=== PATIENT | female | born 1950 | race Caucasian/White ===

== ENCOUNTER 2018-06-09 02:39 | Emergency (ER) | payer OTHER ==
[~2018-06-09] VITALS: Ht 149.9 cm; Wt 73.0 kg
[2018-06-09 02:53] VITALS: Ht 149.9 cm; Wt 73.0 kg
[2018-06-09 03:49] LABS: BASOPHIL % 0.4 % (0-2); PLATELET COUNT 197 x10^3mcL (130-400); RED CELL DISTRIBUTION WIDTH 13.3 % (11.5-14.5)
[2018-06-09 03:57] LABS: CALCIUM 8.7 mg/dL (8.5-10.1); CARBON DIOXIDE 31.6 mmol/L (21-32); CHLORIDE SERUM 103 mmol/L (98-107); CREATININE SERUM 0.8 mg/dL (0.6-1.0); GFR1 > 60 mL/min; GLUCOSE SERUM 137 mg/dL (74-106); POTASSIUM SERUM 3.8 mmol/L (3.5-5.1); SODIUM SERUM 139 mmol/L (136-145)
[2018-06-09 04:03] LABS: ALBUMIN 3.8 g/dL (3.4-5.0); ALKALINE PHOSPHATASE 57 U/L (46-116); ALT/SGPT 33 U/L (14-59); AST/SGOT 19 U/L (15-37); BILIRUBIN TOTAL 0.2 mg/dL (0.20-1.00)
[2018-06-09 05:51] LABS: UA SPECIFIC GRAVITY 1.015 (1.005-1.035); microscopic required? YES; urine erythrocyte TRACE (NEGATIVE)
[2018-06-09 06:32] VITALS: BP 150/69
== END 2018-06-09 06:32 | disposition home or self-care (01) ==
LOC: ED 02:39
PROVIDERS: Emergency Medicine
DX: M54.5 Low back pain (principal); R10.9 Unspecified abdominal pain; I10 Essential (primary) hypertension; Z88.6 Allergy status to analgesic agent
CPT/HCPCS: J1885; J7030

== ENCOUNTER 2018-06-11 09:54 | Emergency (ER) | payer OTHER ==
[~2018-06-11] VITALS: Ht 149.9 cm; Wt 73.0 kg
[2018-06-11 10:11] VITALS: BP 163/75; Ht 149.9 cm; Wt 73.0 kg
== END 2018-06-11 10:46 | disposition home or self-care (01) ==
LOC: ED 09:54
DX: M54.5 Low back pain (principal); I10 Essential (primary) hypertension; Z13.89 Encounter for screening for other disorder; Z88.6 Allergy status to analgesic agent